=== PATIENT | female | born 1950 | race Caucasian/White ===

== ENCOUNTER → 2018-11-06 | Outpatient (CLI) | payer OTHER ==
[2018-11-06 12:15] LABS: BASOPHILS # (AUTO) 0.1 K/uL (0.0-0.2); BASOPHILS % (AUTO) 1.1 % (0.0-2.0); EOSINOPHILS # (AUTO) 0.2 K/uL (0.0-0.4); EOSINOPHILS % (AUTO) 2.1 % (0.0-4.0); HEMATOCRIT 41.6 % (36-54); HEMOGLOBIN 13.8 g/dL (14.0-18.0); LYMPHOCYTES # (AUTO) 3.5 K/uL (1.0-5.5); MEAN CORPUSCULAR HEMOGLOBIN 31 pg (27-31); MEAN CORPUSCULAR HGB CONC 33 % (32-36); MEAN CORPUSCULAR VOLUME 93 fL (79.0-98.0); MONOCYTES # (AUTO) 0.7 K/uL (0.0-1.0); MONOCYTES % (AUTO) 8.1 % (1.7-9.3); NEUTROPHILS # (AUTO) 3.9 K/uL (1.8-7.7); NEUTROPHILS % (AUTO) 46.7 % (40.0-70.0); PLATELET COUNT (AUTO) 333 K/uL (130-430); RED BLOOD CELL COUNT(AUTO) 4.48 MIL/uL (4.2-6.2); RED CELL DISTRIBUTION WIDTH 13.1 % (9.0-15.0); WHITE BLOOD COUNT (AUTO) 8.3 K/uL (4.8-10.8)
[2018-11-06 12:44] LABS: ALBUMIN 3.9 g/dL (3.4-4.8); CALCIUM 9.7 mg/dL (8.4-11.0); CREATININE 0.72 mg/dL (0.55-1.30); POTASSIUM 3.8 mmol/L (3.5-5.1); THYROID STIMULATING HORMONE 0.45 uIu/mL (0.34-4.82); TOTAL BILIRUBIN 0.7 mg/dL (0.0-1.0)
[2018-11-08 17:02] LABS: HEMOGLOBIN A1C 5.7 % (4.8-5.6)
[2018-11-08 17:12] LABS: CREATININE, URINE 93.1 mg/dL; MICROALBUMIN URINE RANDOM 9.2 ug/ml (NOT ESTABLISHED); MICROALBUMIN/CREAT RATIO, UR 9.9 MG/G CRE (0.0-30.0)
== END | disposition home or self-care (01) ==
LOC: EDSEX 11:39 → SLB 11:39
PROVIDERS: ATTEND Internal Medicine
DX: E03.9 Hypothyroidism, unspecified (principal); E78.00 Pure hypercholesterolemia, unspecified; R73.03 Prediabetes; M81.0 Age-related osteoporosis without current pathological fracture
CPT/HCPCS: 36415; 80053; 80061; 82043; 82306; 82570; 83036; 84443-TC; 85025